=== PATIENT | male | born 1980 | race Caucasian/White ===

== ENCOUNTER → 2022-03-04 | Outpatient (CLI) | payer OTHER ==
--- NOTE | 2022-03-05 09:47 | RAD ---
XR SACRUM AND COCCYX 2+VIEWS, XR LUMBAR SPINE 2-3V History: Low back pain after injury. Chronic pain. Comparison: None. Technique: 3 views of the sacrum and coccyx. 3 views of the lumbar spine. Findings: There are 5 non-rib bearing lumbar vertebral segments. There is no evidence of fracture. No destructive osseous lesions. Levoconvex curvature at the thoracolumbar junction. Right T12-L1 and L1-L2 facet hypertrophy. Mild dural osteophytes. The coccyx are normally aligned. The sacroiliac joints are normal. The pubic rami are intact. Soft tissues are unremarkable. IMPRESSION: 1. Levoconvex curvature of the thoracolumbar junction. 2. Mild degenerative disc disc and facet disease of the lumbar spine. 3. No acute findings in the sacrum and coccyx. Electronically signed by: Lang Galaviz MD (03/05/2022 9:44 AM) [id number]
== END ==
LOC: RAD 15:54
PROVIDERS: ATTEND Nurse Practitioner Family
DX: M51.36 Other intervertebral disc degeneration, lumbar region (principal); M43.8X5 Other specified deforming dorsopathies, thoracolumbar region; M25.78 Osteophyte, vertebrae; M47.895 Other spondylosis, thoracolumbar region; Z91.81 History of falling
CPT/HCPCS: 72100; 72220